=== PATIENT | female | born 1950 | race Caucasian/White ===

== ENCOUNTER 2018-06-12 09:35 | Emergency (ER) | payer MEDICARE, MEDICAID ==
[~2018-06-12] VITALS: Ht 154.9 cm; Wt 66.2 kg
[~2018-06-12 09:35] MED LIST: ASPI-605 PO; BENA20TA78 PO; GLIP5TAB13 PO; METF1000 PO; NPH,100V; OMEP20CA4 PO; SIMV10TA2 PO; SIMV10TA6; TRAM50TA2 PO
[2018-06-12 09:43] VITALS: BP 142/84
== END 2018-06-12 11:14 | disposition home or self-care (01) ==
LOC: ER 09:36
DX: J06.9 Acute upper respiratory infection, unspecified (principal); E11.9 Type 2 diabetes mellitus without complications; I10 Essential (primary) hypertension; M54.9 Dorsalgia, unspecified; G89.29 Other chronic pain; Z90.710 Acquired absence of both cervix and uterus; Z79.84 Long term (current) use of oral hypoglycemic drugs
CPT/HCPCS: 71046

== ENCOUNTER 2018-08-25 20:42 | Emergency (ER) | payer MEDICARE, MEDICAID ==
[~2018-08-25] VITALS: Ht 160 cm; Wt 63.5 kg
--- NOTE | 2018-08-25 22:12 | NUR ---
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 +NAUSEA, -VOMITTING
--- NOTE | 2018-08-25 22:27 | NUR ---
AT THE BED SIDE
[2018-08-25] MEDS ORDERED: LOPERAMIDE HCL (2 MG CAP) 2 MG CAPSULE PO ONE ×2 (23:00→23:05)
[2018-08-25] MEDS ORDERED: KETOROLAC TROMETHAMINE INJ 30 MG/ML VIAL IV ONE (23:00)
[2018-08-25] MEDS ORDERED: KETOROLAC TROMETHAMINE 15 MG/ML VIAL ONE (23:05)
[2018-08-25 23:12] LABS: APPEARANCE,URINE Clear (CLEAR); BILIRUBIN,URINE Negative (NEGATIVE); BLOOD, URINE Negative Ery/uL (NEGATIVE); COLOR,URINE Yellow (YELLOW); KETONES,URINE Negative (NEGATIVE); LEUKOCYTE ESTERASE ,URINE Negative (NEGATIVE); NITRITE, URINE Negative (NEGATIVE); PROTEIN,URINE Negative (NEGATIVE); UGLUCOSE Negative (NEGATIVE); UROBILINOGEN,URINE 0.2 EU/dL (0.2)
[2018-08-25 23:14] LABS: BASOPHILS # (AUTO) 0.1 /CMM (0.0-0.2); BASOPHILS % (AUTO) 0.5 % (0.0-2.0); EOSINOPHILS % (AUTO) 0.5 % (0.0-6.0); HEMATOCRIT 36 % (33-45); LYMPHOCYTES # (AUTO) 1.6 /CMM (0.8-4.8); LYMPHOCYTES % (AUTO) 15.2 % (20.0-44.0); MEAN CORPUSCULAR HGB CONC 33 g/dl (31.0-36.0); MEAN CORPUSCULAR VOLUME 84 fL (82-100); MONOCYTES # (AUTO) 0.7 /CMM (0.1-1.30); MONOCYTES % (AUTO) 6.9 % (2.0-12.0); NEUTROPHILS % (AUTO) 76.9 % (43.0-81.0); PLATELET COUNT (AUTO) 232 /CMM (150-450); RED BLOOD CELL COUNT(AUTO) 4.32 MIL/uL (4.0-5.2); WHITE BLOOD COUNT (AUTO) 10.5 K/uL (4.3-11.0)
[2018-08-25 23:20] LABS: CREATININE 0.7 mg/dL (0.6-1.3); POTASSIUM 4.1 mmol/L (3.5-5.1)
[2018-08-25 23:28] LABS: ALBUMIN 3.7 g/dL (3.4-5.0); BILIRUBIN,DIRECT 0.1 mg/dL (0.0-0.2); BILIRUBIN,TOTAL 0.5 mg/dL (0.2-1.0); CALCIUM, SERUM 9.1 mg/dL (8.5-10.1); TOTAL PROTEIN, SERUM 7.3 g/dL (6.4-8.2)
--- NOTE | 2018-08-26 00:30 | NUR ---
Patient discharged to home in stable condition. Rx and Written and verbal after care instructions given. Patient verbalizes understanding of instruction.
[2018-08-26 00:31] VITALS: BP 128/76
== END 2018-08-26 00:31 | disposition home or self-care (01) ==
LOC: ER 20:50
DX: R10.30 Lower abdominal pain, unspecified (principal); R19.7 Diarrhea, unspecified; G89.29 Other chronic pain; M54.5 Low back pain; E11.9 Type 2 diabetes mellitus without complications; I10 Essential (primary) hypertension; Z90.710 Acquired absence of both cervix and uterus; Z79.82 Long term (current) use of aspirin
CPT/HCPCS: 36415; 80048; 80076; 81001; 85025; 96374; 99283; J1885; 81000-TC

== ENCOUNTER 2018-09-30 04:15 | Emergency (ER) | payer MEDICARE, MEDICAID ==
[~2018-09-30] VITALS: Ht 162.6 cm; Wt 70.3 kg
--- NOTE | 2018-09-30 04:25 | NUR ---
BIBFAMILY FROM HOME. TO ER BED 4. AAOX4, NO RESP DISTRESS NOTED AT TIME OF ASSESSMENT. 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 PT REPORT NAUSEA, NO VOMITING AND NO DIARRHEA. O2 SAT 100% ON RA. AT BEDSIDE FOR EVAL. IV LINE OBTAINED ON L AC 20G. BLOOD DRAWN AND SENT TO LAB.
[2018-09-30 04:43] LABS: BASOPHILS # (AUTO) 0.1 /CMM (0.0-0.2); BASOPHILS % (AUTO) 0.8 % (0.0-2.0); EOSINOPHILS % (AUTO) 1.5 % (0.0-6.0); HEMATOCRIT 36 % (33-45); HEMOGLOBIN 11.9 g/dL (11.5-14.8); LYMPHOCYTES # (AUTO) 2.8 /CMM (0.8-4.8); LYMPHOCYTES % (AUTO) 40.1 % (20.0-44.0); MEAN CORPUSCULAR HGB CONC 34 g/dl (31.0-36.0); MEAN CORPUSCULAR VOLUME 84 fL (82-100); MONOCYTES # (AUTO) 0.8 /CMM (0.1-1.30); MONOCYTES % (AUTO) 11.1 % (2.0-12.0); NEUTROPHILS # (AUTO) 3.2 /CMM (1.8-8.9); NEUTROPHILS % (AUTO) 46.5 % (43.0-81.0); PLATELET COUNT (AUTO) 238 /CMM (150-450); RED BLOOD CELL COUNT(AUTO) 4.23 MIL/uL (4.0-5.2); WHITE BLOOD COUNT (AUTO) 6.9 K/uL (4.3-11.0)
[2018-09-30 04:54] LABS: CARBON DIOXIDE 25 mmol/L (21-32); CHLORIDE 101 mmol/L (98-107); CREATININE 0.8 mg/dL (0.6-1.3); GLUCOSE 195 mg/dL (74-106); POTASSIUM 3.9 mmol/L (3.5-5.1); SODIUM SERUM 137 mmol/L (136-145); UREA NITROGEN, BLOOD 11 mg/dL (7-18)
[2018-09-30 05:06] LABS: ALANINE AMINOTRANSFERASE 63 U/L (12-78); ALBUMIN 3.7 g/dL (3.4-5.0); ALKALINE PHOSPHATASE 85 U/L (46-116); ASPARTATE AMINOTRANSFERASE 28 U/L (15-37); B-TYPE NATRIURETIC PEPTIDE 25 PG/ML (0-125); BILIRUBIN,DIRECT 0.1 mg/dL (0.0-0.2); BILIRUBIN,TOTAL 0.3 mg/dL (0.2-1.0); TOTAL PROTEIN, SERUM 7.5 g/dL (6.4-8.2)
[2018-09-30] MEDS ORDERED: MECLIZINE HCL 25 MG TABLET ONE (05:54)
[2018-09-30] MEDS ORDERED: CEPHALEXIN MONOHYDRATE 500 MG CAPSULE PO ONE ×2 (05:54→06:00)
[2018-09-30] MEDS ORDERED: MECLIZINE HCL 25 MG TABLET PO ONE (06:00)
--- NOTE | 2018-09-30 06:17 | NUR ---
IV removed. Catheter intact and site benign. Pressure and 4x4 applied to site. No bleeding noted. Patient discharged to home in stable condition. Written and verbal after care instructions given. Patient verbalizes understanding of instruction. Pt ambulatory with a steady gait
[2018-09-30 06:19] VITALS: BP 57/132
== END 2018-09-30 06:20 | disposition home or self-care (01) ==
LOC: ER 04:19
DX: R42 Dizziness and giddiness (principal); L03.114 Cellulitis of left upper limb; I10 Essential (primary) hypertension; E11.9 Type 2 diabetes mellitus without complications; G89.29 Other chronic pain; E78.5 Hyperlipidemia, unspecified; Z90.710 Acquired absence of both cervix and uterus; Z79.899 Other long term (current) drug therapy; Z79.4 Long term (current) use of insulin; Z79.84 Long term (current) use of oral hypoglycemic drugs; Z79.82 Long term (current) use of aspirin
CPT/HCPCS: 36415; 71045; 80048; 80076; 83880; 84484; 85025; 85378; 85730; 93005; 99284; J8597

== ENCOUNTER 2019-04-16 17:12 | Emergency (ER) | payer MEDICARE, MEDICAID ==
[~2019-04-16] VITALS: Ht 160 cm; Wt 63.0 kg
[~2019-04-16 17:12] MED LIST changes: -SIMV10TA6; +SIMV10TA98
[2019-04-16] MEDS ORDERED: KETOROLAC TROMETHAMINE INJ 30 MG/ML VIAL IM ONE (18:00)
[2019-04-16] MEDS ORDERED: ALBUTEROL FS 2.5 MG/0.5 ML VIAL.NEB NEB ONE (18:00)
--- NOTE | 2019-04-16 18:31 | NUR ---
PT RREC'D TO ER C/O BACK PAIN TODAY 09/25 TORADOL 15 MG IM RT BUTTUCKS TOLERATED WELL FAMILY AT BEDSIDE
[2019-04-16 18:40] LABS: BASOPHILS # (AUTO) 0.1 /CMM (0.0-0.2); BASOPHILS % (AUTO) 0.5 % (0.0-2.0); EOSINOPHILS % (AUTO) 0.7 % (0.0-6.0); HEMATOCRIT 38 % (33-45); HEMOGLOBIN 12.5 g/dL (11.5-14.8); LYMPHOCYTES # (AUTO) 2.4 /CMM (0.8-4.8); LYMPHOCYTES % (AUTO) 22.3 % (20.0-44.0); MEAN CORPUSCULAR HGB CONC 33 g/dl (31.0-36.0); MEAN CORPUSCULAR VOLUME 84 fL (82-100); MONOCYTES # (AUTO) 0.7 /CMM (0.1-1.30); MONOCYTES % (AUTO) 6.5 % (2.0-12.0); NEUTROPHILS # (AUTO) 7.5 /CMM (1.8-8.9); PLATELET COUNT (AUTO) 242 /CMM (150-450); RED BLOOD CELL COUNT(AUTO) 4.56 MIL/uL (4.0-5.2); WHITE BLOOD COUNT (AUTO) 10.7 K/uL (4.3-11.0)
[2019-04-16 18:48] LABS: CALCIUM, SERUM 9.4 mg/dL (8.5-10.1); CREATININE 0.6 mg/dL (0.6-1.3); POTASSIUM 4.5 mmol/L (3.5-5.1)
[2019-04-16 18:52] LABS: ALBUMIN 4.2 g/dL (3.4-5.0); BILIRUBIN,DIRECT 0.1 mg/dL (0.0-0.2); BILIRUBIN,TOTAL 0.3 mg/dL (0.2-1.0); TOTAL PROTEIN, SERUM 7.8 g/dL (6.4-8.2)
--- NOTE | 2019-04-16 19:07 | NUR ---
REPORT RECEIVED FROM KRISTINE GAY FOR CLEVE.
--- NOTE | 2019-04-16 19:08 | NUR ---
PT IS AAOX4. NO SOB. BREATHING EVENLY AND UNLABORED. PT'S FAMILY MEMBER AT BEDSIDE. VSS. WILL CONTINUE TO MONITOR PATIENT.
[2019-04-16 19:09] LABS: APPEARANCE,URINE Clear (CLEAR); BILIRUBIN,URINE Negative (NEGATIVE); BLOOD, URINE Negative Ery/uL (NEGATIVE); COLOR,URINE Yellow (YELLOW); KETONES,URINE Negative (NEGATIVE); LEUKOCYTE ESTERASE ,URINE Trace (NEGATIVE); NITRITE, URINE Negative (NEGATIVE); PH,URINE 7.5 (5.0-8.0); PROTEIN,URINE Negative (NEGATIVE); UGLUCOSE Negative (NEGATIVE); UROBILINOGEN,URINE 0.2 EU/dL (0.2)
[2019-04-16 19:19] LABS: BACTERIA,URINE None seen /HPF (None Seen); RBC,URINE 0-2 /HPF (0-2); SQUAMOUS EPITHELIAL CELL,UR Few /HPF (None Seen); WBC,URINE 0-2 /HPF (0-3)
--- NOTE | 2019-04-16 20:03 | NUR ---
Patient discharged to home in stable condition. Written and verbal after care instructions given. Patient verbalizes understanding of instruction.
[2019-04-16 20:04] VITALS: BP 129/73
== END 2019-04-16 20:04 | disposition home or self-care (01) ==
LOC: ER 17:14
DX: K57.32 Diverticulitis of large intestine without perforation or abscess without bleeding (principal); I10 Essential (primary) hypertension; E11.9 Type 2 diabetes mellitus without complications; M54.5 Low back pain; G89.29 Other chronic pain; Z90.710 Acquired absence of both cervix and uterus; Z79.899 Other long term (current) drug therapy; Z79.82 Long term (current) use of aspirin
CPT/HCPCS: 36415; 80048-TC; 80076-TC; 81000-TC; 83690-TC; 85025-TC; 87086-TC

== ENCOUNTER 2019-09-06 16:59 | Emergency (ER) | payer MEDICARE, OTHER ==
[~2019-09-06] VITALS: Ht 152.4 cm; Wt 66.7 kg
[2019-09-06 17:06] VITALS: BP 141/89
[2019-09-06] MEDS ORDERED: TDAP [DIPH/PERTUSSIS/TET] 0.5 ML VIAL IM ONE ×2 (17:22→17:30)
[2019-09-06] MEDS ORDERED: ACETAMINOPHEN ES 500 MG TABLET ONE (17:22)
[2019-09-06] MEDS ORDERED: ACETAMINOPHEN 325 MG TABLET PO ONE (17:30)
[2019-09-06] MEDS ORDERED: GELATIN SPONGE,ABSORBABLE 1 SPONGE SPONGE TP ONE (17:50)
--- NOTE | 2019-09-06 18:02 | NUR ---
Non-adaptic and dressing applied by BRIDGETTE Gomez on R thumb. Patient discharged to home in stable condition. Written and verbal after care instructions given. Patient verbalizes understanding of instruction. NO active bleeding noted
== END 2019-09-06 18:03 | disposition home or self-care (01) ==
LOC: ER 17:09
DX: S61.001A Unspecified open wound of right thumb without damage to nail, initial encounter (principal); I10 Essential (primary) hypertension; E11.9 Type 2 diabetes mellitus without complications; M54.9 Dorsalgia, unspecified; G89.29 Other chronic pain; Z79.82 Long term (current) use of aspirin; Z90.710 Acquired absence of both cervix and uterus; Z79.899 Other long term (current) drug therapy; W26.8XXA Contact with other sharp object(s), not elsewhere classified, initial encounter; Y93.89 Activity, other specified; Y92.89 Other specified places as the place of occurrence of the external cause; Y99.8 Other external cause status
CPT/HCPCS: 90471; 90715; 99283; A6403

== ENCOUNTER 2021-07-22 13:16 | Emergency (ER) | payer MEDICARE, OTHER ==
[~2021-07-22] VITALS: Ht 152.4 cm; Wt 62.1 kg
--- NOTE | 2021-07-22 13:44 | NUR ---
RAD AT BEDSIDE
[2021-07-22] MEDS ORDERED: IBUP-1955 PO (14:25)
[2021-07-22] MEDS ORDERED: IBUPROFEN 600 MG TABLET PO ONE (14:30)
[2021-07-22 14:33] VITALS: BP 129/82
== END 2021-07-22 14:41 | disposition home or self-care (01) ==
LOC: ER 13:20
DX: S83.92XA Sprain of unspecified site of left knee, initial encounter (principal); I10 Essential (primary) hypertension; G89.29 Other chronic pain; E11.9 Type 2 diabetes mellitus without complications; Z90.710 Acquired absence of both cervix and uterus; Z79.899 Other long term (current) drug therapy; X58.XXXA Exposure to other specified factors, initial encounter; Y93.89 Activity, other specified; Y92.89 Other specified places as the place of occurrence of the external cause; Y99.8 Other external cause status
CPT/HCPCS: 73564-TC

== ENCOUNTER 2021-08-06 10:35 | Inpatient (IN) | payer MEDICARE, OTHER ==
[~2021-08-06] VITALS: Ht 154.9 cm; Wt 61.7 kg
[~2021-08-06 10:35] MED LIST changes: +IBUP-1955 PO
--- NOTE | 2021-08-06 11:00 | NUR ---
BIBS C/O CP since thursday, sent by PCP for further evaluation abnormal EKG in the PCP's office. AMBULATORY, PLACED ON BED, AAOX4, ATTACHED TO MONITOR- SINUS RHYTHYM, SATURATING AT 99% WITH 2LIT. O2, IN PAIN 09/25
--- NOTE | 2021-08-06 11:00 | NUR ---
RECIVED PT 70 YRS FEMALE C/O CHEST PAIN CAME AND SARTHAK no sob
[2021-08-06 11:05] LABS: BASOPHILS # (AUTO) 0.1 K/uL (0.0-0.2); BASOPHILS % (AUTO) 1.3 % (0.0-2.0); EOSINOPHILS % (AUTO) 3.1 % (0.0-6.0); HEMATOCRIT 37 % (33-45); HEMOGLOBIN 12.2 g/dL (11.5-14.8); LYMPHOCYTES # (AUTO) 1.9 K/uL (0.8-4.8); MEAN CORPUSCULAR HGB CONC 33 g/dl (31.0-36.0); MEAN CORPUSCULAR VOLUME 83 fL (82-100); MONOCYTES # (AUTO) 0.5 K/uL (0.1-1.30); NEUTROPHILS # (AUTO) 3.3 K/uL (1.8-8.9); NEUTROPHILS % (AUTO) 55.6 % (43.0-81.0); PLATELET COUNT (AUTO) 233 K/uL (150-450); RED BLOOD CELL COUNT(AUTO) 4.44 MIL/uL (4.0-5.2); WHITE BLOOD COUNT (AUTO) 5.9 K/uL (4.3-11.0)
[2021-08-06 11:15] LABS: CALCIUM, SERUM 9.1 mg/dL (8.5-10.1); CARBON DIOXIDE 25 mmol/L (21-32); CHLORIDE 100 mmol/L (98-107); CREATININE 0.8 mg/dL (0.6-1.3); GLUCOSE 235 mg/dL (74-106); POTASSIUM 4.2 mmol/L (3.5-5.1); SODIUM SERUM 134 mmol/L (136-145); UREA NITROGEN, BLOOD 14 mg/dL (7-18)
[2021-08-06 11:28] LABS: ALANINE AMINOTRANSFERASE 38 U/L (12-78); ALBUMIN 4.1 g/dL (3.4-5.0); ALKALINE PHOSPHATASE 80 U/L (46-116); ASPARTATE AMINOTRANSFERASE 21 U/L (15-37); BILIRUBIN,DIRECT 0.1 mg/dL (0.0-0.2); BILIRUBIN,TOTAL 0.4 mg/dL (0.2-1.0)
[2021-08-06] MEDS ORDERED: INSU100V7 SQ (11:28)
[2021-08-06] MEDS ORDERED: SITA100T PO (11:28)
--- NOTE | 2021-08-06 11:30 | NUR ---
SWAB FOR COVID19 SENT TO LAB
--- NOTE | 2021-08-06 11:50 | NUR ---
[facility]
--- NOTE | 2021-08-06 12:57 | NUR ---
NO CHEST PAIN AT THIS TIME NO SOB
--- NOTE | 2021-08-06 14:30 | NUR ---
RESTING AT THIS TIME NO PAIN
--- NOTE | 2021-08-06 15:31 | NUR ---
ROOM 320-2
--- NOTE | 2021-08-06 15:45 | NUR ---
TO ROOM 320-2 VIA ROSY STABLE VIA ROSY HAND OFF CASSIDY REYNOLDS VS STABLE DINESS CHEST PAIN
--- NOTE | 2021-08-06 15:50 | NUR ---
RECEIVED PATIENT ON UNIT @ 1550 VIA [employer]. ABLE TO AMBULATE TO BED W/ MINIMAL ASSIST. PATIENT DENIES PAIN AT THIS TIME. NO S/SX OF DISTRESS OR SOB OBSERVED OR REPORTED. CALL LIGHT WITHIN REACH. BED IN LOWEST POSITION AND LOCKED WITH SIDERAIL UP X2. WILL CONTINUE TO MONITOR.
[2021-08-06] MEDS ORDERED: Z GUARD REMEDY 4 OZ OINT TP PRN (16:00)
[2021-08-06] MEDS ORDERED: ZOLPIDEM TARTRATE 5 MG TABLET PO PRN (16:00)
[2021-08-06] MEDS ORDERED: ONDANSETRON HCL/PF 4 MG/2 ML VIAL IVP PRN (16:00)
[2021-08-06] MEDS ORDERED: ACETAMINOPHEN 325 MG TABLET PO PRN (16:00)
[2021-08-06] MEDS ORDERED: MAG HYDROX/AL HYDROX/SIMETH 30 ML UDC PO PRN (16:00)
[2021-08-06] MEDS ORDERED: MAGNESIUM HYDROXIDE 30 ML UDC PO PRN (16:00)
[2021-08-06 16:19] VITALS: BP 125/66
[2021-08-06] MEDS ORDERED: Medication Not On Formulary EA (Metformin Hcl (Glucophage) 1,000 MG) PO SCH (17:00)
[2021-08-06] MEDS: METFORMIN 500 MG TABLET PO SCH (18:15)
[2021-08-06] MEDS: ATORVASTATIN 40 MG TABLET PO SCH (18:15)
[2021-08-06] MEDS: ENOXAPARIN SODIUM 40 MG/0.4 ML DISP.SYRIN SQ SCH (18:16)
[2021-08-06 18:17] LABS: THYROID STIMULATING HORMONE 2.469 uIU/mL (0.358-3.74)
--- NOTE | 2021-08-06 19:00 | NUR ---
INTERNATIONAL RELATIONS TEACHER NOTES PT IN BED, RESTING, NO COMPLAINT AT THIS TIME, RESPIRATIONS NORMAL, CALL LIGHT WITHIN REACH, SEEN AND EXAMINED BY DR. TOM, PT FOR [facility] TOMORROW, PT INFORMED, CONSENT SIGNED.
--- NOTE | 2021-08-06 19:00 | NUR ---
RN opening notes Received Pt from morning nurse. Pt is sitting in bed comfortably watching TV. Pt is alert and orienetdX4. On room air. No S/S of distress noted. Tele monitor showed SR hr at 70. IV site at LAC# 20 is clean, intact and SL. Pt is able to ambulates with a steady gait. Safety precautions is maintained. Bed at low position, brakes locked, side rails upX2, hob elevated and call light is within reach. Will continue to monitor.
[2021-08-06 20:00] VITALS: BP_SYST 130; BP_SYST 139; BP_DIAS 70
[2021-08-06] MEDS: CARVEDILOL 6.25 MG TABLET PO SCH (21:21)
[2021-08-07] VITALS (9 sets, daily range): BP systolic 110–125; BP diastolic 52–69
[2021-08-07 06:39] LABS: BASOPHILS # (AUTO) 0.1 K/uL (0.0-0.2); HEMATOCRIT 36 % (33-45); HEMOGLOBIN 12.1 g/dL (11.5-14.8); LYMPHOCYTES # (AUTO) 2.5 K/uL (0.8-4.8); LYMPHOCYTES % (AUTO) 35.6 % (20.0-44.0); MEAN CORPUSCULAR HGB CONC 34 g/dl (31.0-36.0); MEAN CORPUSCULAR VOLUME 83 fL (82-100); MONOCYTES # (AUTO) 0.5 K/uL (0.1-1.30); MONOCYTES % (AUTO) 7.1 % (2.0-12.0); NEUTROPHILS # (AUTO) 3.7 K/uL (1.8-8.9); NEUTROPHILS % (AUTO) 53.3 % (43.0-81.0); PLATELET COUNT (AUTO) 229 K/uL (150-450); RED BLOOD CELL COUNT(AUTO) 4.37 MIL/uL (4.0-5.2); WHITE BLOOD COUNT (AUTO) 6.9 K/uL (4.3-11.0)
--- NOTE | 2021-08-07 06:40 | NUR ---
RN closing notes Pt is resting in bed comfortably. Pt is alert and orientedX4. On room air. No S/S of distress noted. VS is stable. Tele monitor showed SR hr at 68. IV site at LAC# 20 is clean, intact and SL. Routine meds were given as ordered. Kept Pt clean, dry and comfortable. Safety precautions is maintained. Bed at low position, brakes locked, side rails upX2, hob elevated and call light is within reach. Will endorse to am nurse for CLEVE.
--- NOTE | 2021-08-07 06:40 | NUR ---
RN notes Pt is complaining of having loose stool four times and requesting meds. Informed and notified Dr. Zeng. ordered lactinex 2 tabs/po/bid. Order carried out.
[2021-08-07] MEDS: ACIDOPHILUS/BULGARICUS 1 EACH TAB.CHEW PO SCH ×3 (06:50→16:59)
--- NOTE | 2021-08-07 06:52 | NUR ---
RN notes Pt is having loose stool and requesting meds. administered lactinex 2tabs/po as ordered per Pt request. Will continue to monitor.
[2021-08-07 07:03] LABS: CALCIUM, SERUM 9.2 mg/dL (8.5-10.1); CREATININE 0.8 mg/dL (0.6-1.3); MAGNESIUM 1.5 mg/dL (1.8-2.4); PHOSPHORUS 4.2 mg/dL (2.5-4.9); POTASSIUM 4.3 mmol/L (3.5-5.1)
[2021-08-07 07:21] LABS: THYROID STIMULATING HORMONE 2.675 uIU/mL (0.358-3.74)
[2021-08-07] MEDS: PANTOPRAZOLE 40 MG TABLET.DR PO SCH (07:30)
[2021-08-07] MEDS ORDERED: OMEPRAZOLE 20 MG CAPSULE.DR PO SCH (07:30)
--- NOTE | 2021-08-07 07:35 | NUR ---
INTERNAL COMMUNICATIONS MANAGER OPENING NOTES: RECEIVED PATIENT IN BED AWAKE, ALERT AND ORIENTED X 4 AND ABLE TO VERBALIZED NEEDS. NO SOB OR CARDIAC DISTRESS NOTE, AFEBRILE. ON NPO. ON O2 INHALATION @2LPM VIA NC FOR COMFORT. 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 KEPT RESTED AND COMFORTABLE. SAFETY PRECAUTIONARY MEASURES MAINTAINED: BED IN LOWEST AND LOCKED POSITION, SIDE RAILS UP X 2. CALL LIGHT IN EASY REACH FOR HELP/ASSISTANCE.
[2021-08-07] MEDS: METFORMIN 500 MG TABLET PO SCH (08:00)
[2021-08-07] MEDS: ATORVASTATIN 40 MG TABLET PO SCH (09:00)
[2021-08-07] MEDS: BENAZEPRIL HCL 20 MG TABLET PO SCH (09:00)
[2021-08-07] MEDS: CARVEDILOL 6.25 MG TABLET PO SCH ×2 (09:00→21:06)
[2021-08-07] MEDS ORDERED: ASPIRIN 81 MG TAB.CHEW PO SCH (09:00)
[2021-08-07] MEDS: ASPIRIN EC 81 MG TABLET.DR PO SCH (09:00)
[2021-08-07] MEDS: LINAGLIPTIN 5 MG TABLET PO SCH (09:00)
[2021-08-07] MEDS: Magnesium 1GM/D5W 100ML PREMIX 100 ML IV SCH ×2 (11:00→11:58)
[2021-08-07] MEDS ORDERED: IOHEXOL-350 100 ML VIAL IV ONE (13:21)
[2021-08-07] MEDS ORDERED: CT SWABBABLE VALVE TRANS SET 1 EA INFUS.SET MC ONE (13:21)
--- NOTE | 2021-08-07 13:36 | NUR ---
RN NOTES: PATIENT PICKED UP TRANSPORTER VIA BED AND WENT TO CT ANGIOGRAM.
[2021-08-07] MEDS ORDERED: METOPROLOL TARTRATE INJ 5 MG/5 ML AMPUL ONE (13:50)
--- NOTE | 2021-08-07 14:04 | NUR ---
rn notes CTA done at this time patient stable medication was administered Metoprolol 5mg/ml iv push on LAC area intact, and nitro on SL sprayx1, BP- 117/68, p-62. patient stable procedure done patient tolerated well. patient stable, sand back to the room. RN notified follow up.
--- NOTE | 2021-08-07 14:28 | NUR ---
RN NOTES: RECEIVED PATIENT FROM CTA, PATIENT WAS TRANSPORTED VIA WHEELCHAIR ACCOMPANIED BY ERLIN CASTRO. MD TOWNSEND TO RESUME DIET AND HOLD METFORMIN FOR 2 DAYS. PATIENT STABLE, VS 110/62, HR 62, O2 SAT 97% RM. WILL MONITOR AND WILL REPORT FOR ANY SIGNIFICANT CHANGES.
[2021-08-07] MEDS: ENOXAPARIN SODIUM 40 MG/0.4 ML DISP.SYRIN SQ SCH (16:03)
--- NOTE | 2021-08-07 18:51 | NUR ---
MS RN CLOSING NOTES : PATIENT IN BED AWAKE RESTING IN BED, ALERT AND ORIENTED X 4 AND ABLE TO VERBALIZED NEEDS. NO SOB OR CARDIAC DISTRESS NOTE, AFEBRILE. ON O2 INHALATION @2LPM VIA NC FOR COMFORT. 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 KEPT RESTED AND COMFORTABLE. SAFETY PRECAUTIONARY MEASURES MAINTAINED: BED IN LOWEST AND LOCKED POSITION, SIDE RAILS UP X 2. CALL LIGHT IN EASY REACH FOR HELP/ASSISTANCE. WILL ENDORSED TO NEXT SHIFT FOR CONTINUITY OF CARE.
--- NOTE | 2021-08-07 19:15 | NUR ---
RN opening notes Pt is resting in bed comfortably. Pt is alert and orientedX4. On room air. No S/S of distress noted. IV site at LAC# 20 is clean, intact and SL. Pt is able to ambulates with a steady gait. Safety precautions is maintained. Bed at low position, brakes locked, side rails upX2, hob elevated and call light is within reach. Will continue to monitor.
--- NOTE | 2021-08-07 19:40 | NUR ---
RN NOTES: RECEIVED ORDER FROM DR CHAVEZ FOR MODERATE SLIDING SCALE, NIGHT NURSE INFORMED.
--- NOTE | 2021-08-07 19:50 | NUR ---
RN notes Pt is complaining of mild pain on L knee and requesting tylenol. administered tylenol 650 mg/po/prn as ordered per pt' request. will continue to monitor.
[2021-08-07] MEDS ORDERED: DEXTROSE 50%-WATER 50 ML DISP.SYRIN IV PRN (20:00)
[2021-08-07] MEDS ORDERED: *INSULIN REGULAR(HUMULIN R)HUM 100 UNIT/ML VIAL SQ PRN (20:00)
[2021-08-07] MEDS: BLOOD SUGAR DIAGNOSTIC 1 EACH STRIP VI SCH (21:46)
--- NOTE | 2021-08-07 23:44 | NUR ---
RN notes Informed and notified Dr. Zeng regarding the result of CT angiogram with calcium score. MD ordered to follow up with cardiology in am. Order carried out. Charge nurse is aware and informed.
[2021-08-08] MEDS: BLOOD SUGAR DIAGNOSTIC 1 EACH STRIP VI SCH ×2 (06:33→12:15)
[2021-08-08] MEDS: INSULIN REGULAR, HUMAN 100 UNIT/ML 3 ML VIAL SQ PRN ×2 (06:34→12:14)
[2021-08-08 06:40] LABS: CALCIUM, SERUM 9.2 mg/dL (8.5-10.1); CREATININE 0.8 mg/dL (0.6-1.3); MAGNESIUM 1.8 mg/dL (1.8-2.4); PHOSPHORUS 3.8 mg/dL (2.5-4.9); POTASSIUM 4.9 mmol/L (3.5-5.1)
--- NOTE | 2021-08-08 06:45 | NUR ---
RN closing notes Pt is resting in bed comfortably. Pt is alert and orientedX4. On room air. No S/S of distress noted. IV site at LAC# 20 is clean, intact and SL. VS is stable. Routine meds were given as ordered. Kept Pt clean, dry and comfortable. All needs met and attended. Safety precautions is maintained. Bed at low position, brakes locked, side rails upX2, hob elevated and call light is within reach. Will continue to monitor.
[2021-08-08 06:50] LABS: BASOPHILS # (AUTO) 0.1 K/uL (0.0-0.2); BASOPHILS % (AUTO) 0.9 % (0.0-2.0); EOSINOPHILS % (AUTO) 3.4 % (0.0-6.0); HEMATOCRIT 38 % (33-45); HEMOGLOBIN 12.4 g/dL (11.5-14.8); LYMPHOCYTES # (AUTO) 2.5 K/uL (0.8-4.8); MEAN CORPUSCULAR HGB CONC 33 g/dl (31.0-36.0); MEAN CORPUSCULAR VOLUME 84 fL (82-100); MONOCYTES # (AUTO) 0.5 K/uL (0.1-1.30); MONOCYTES % (AUTO) 7.9 % (2.0-12.0); NEUTROPHILS # (AUTO) 2.9 K/uL (1.8-8.9); NEUTROPHILS % (AUTO) 46.8 % (43.0-81.0); PLATELET COUNT (AUTO) 235 K/uL (150-450); RED BLOOD CELL COUNT(AUTO) 4.51 MIL/uL (4.0-5.2); WHITE BLOOD COUNT (AUTO) 6.1 K/uL (4.3-11.0)
--- NOTE | 2021-08-08 07:30 | NUR ---
MS RN OPENING NOTES: RECEIVED PATIENT IN BED AWAKE, ALERT AND ORIENTED X 4 AND ABLE TO MAKE NEEDS KNOWN. NO SOB OR CARDIAC DISTRESS NOTE, AFEBRILE. ON ROOM AIR AND TOLERATING WELL. IV ACCESS ON LAC G#20 PATENT, INTACT AND FLUSHING WELL ANS SL. SAFETY PRECAUTIONARY MEASURES MAINTAINED: BED IN LOWEST AND LOCKED POSITION, SIDE RAILS UP X 2. CALL LIGHT IN EASY REACH FOR HELP/ASSISTANCE. WILL MONITOR ACCORDINGLY. KEPR RESTED AND COMFORTABLE.
[2021-08-08] MEDS: PANTOPRAZOLE 40 MG TABLET.DR PO SCH (07:34)
[2021-08-08 08:21] VITALS: BP 121/64
[2021-08-08] MEDS: ASPIRIN EC 81 MG TABLET.DR PO SCH (09:15)
[2021-08-08] MEDS: ACIDOPHILUS/BULGARICUS 1 EACH TAB.CHEW PO SCH (09:15)
[2021-08-08] MEDS: ATORVASTATIN 40 MG TABLET PO SCH (09:16)
[2021-08-08] MEDS: BENAZEPRIL HCL 20 MG TABLET PO SCH (09:16)
[2021-08-08 09:20] VITALS: BP 121/64
[2021-08-08] MEDS: CARVEDILOL 6.25 MG TABLET PO SCH (09:20)
[2021-08-08] MEDS: LINAGLIPTIN 5 MG TABLET PO SCH (09:20)
[2021-08-08] MEDS ORDERED: CARV6.252 PO (12:23)
[2021-08-08] MEDS ORDERED: ATOR40TA PO (12:23)
--- NOTE | 2021-08-08 14:49 | NUR ---
CHROME TANNER NOTES: PATIENT DISCHARGED TO HOME. A/O X 4 AND ABLE TO VERBALIZED NEED. NO SOB OR CARDIAC DISTRESS NOTED. HOSPITAL DISCHARGE INSTRUCTION GIVEN TO PATIENT AND DACINDYTHER MAXIMINO AND VERBALIZED UNDERSTANDING. PATIENT'S VS WNL. PAPER WORKS GIVEN TO MS STANTON INSTRUCTED TO FOLLOW UP ON PATIENT'S PCP AFTER A WEEK, BELONGINGS GIVEN, SIGNED PAPERS. REMOVED IV LINE AND SECURED WITH TAPE. REMOVED IDENTIFICATION BAND. PATIENT WAS HELPED BY ELISHA JO ACCOMPANIED BY MARK ANTHONY. PATIENT LEFT THE UNIT STABLE.
== END 2021-08-08 15:54 | disposition home or self-care (01) | DRG 303 ==
LOC: ER 10:38 → TELE 15:33 → MED 08-07 10:09
PROVIDERS: ADMIT Student in an Organized Health Care Education/Training Program; ATTEND Student in an Organized Health Care Education/Training Program
DX: I25.10 Atherosclerotic heart disease of native coronary artery without angina pectoris (principal); E11.9 Type 2 diabetes mellitus without complications; I10 Essential (primary) hypertension; Z79.84 Long term (current) use of oral hypoglycemic drugs; Z79.4 Long term (current) use of insulin; Z79.82 Long term (current) use of aspirin; Z79.899 Other long term (current) drug therapy; Z86.711 Personal history of pulmonary embolism; Z83.3 Family history of diabetes mellitus; Z82.49 Family history of ischemic heart disease and other diseases of the circulatory system; Z90.710 Acquired absence of both cervix and uterus
CPT/HCPCS: 36415; 70450-TC; 71045-TC; 75574; 80048-TC; 80061-TC; 80076-TC; 82962-TC; 83735-TC; 83880; 84100-TC; 84439-TC; 84443-TC; 84484-TC; 85025-TC; 87081-TC; 93307-TC; 94799-TC; 97116-TC; C9803; G0378; J1650; J1815; J3475; J3490; J7060; Q9967

== ENCOUNTER 2023-06-06 20:05 | Emergency (ER) | payer MEDICARE, OTHER ==
[~2023-06-06] VITALS: Ht 154.9 cm; Wt 77.1 kg
[~2023-06-06 20:05] MED LIST changes: +ATOR40TA PO; +CARV6.252 PO; -GLIP5TAB13 PO; +INSU100V7 SQ; -NPH,100V; -SIMV10TA2 PO; -SIMV10TA98; +SITA100T PO; -TRAM50TA2 PO
[2023-06-06] MEDS ORDERED: ONDANSETRON HCL/PF 4 MG/2 ML VIAL ONE (20:32)
[2023-06-06] MEDS ORDERED: MORPHINE SULFATE INJ 4 MG/ML DISP.SYRIN ONE (20:32)
[2023-06-06] MEDS: ONDANSETRON HCL/PF 4 MG/2 ML VIAL IVP ONE (20:33)
[2023-06-06] MEDS: IV NS 0.9% 1,000 ML BAG IV ONE (20:33)
[2023-06-06] MEDS: MORPHINE SULFATE INJ 2 MG/ML DISP.SYRIN IV ONE (20:33)
[2023-06-06 20:48] LABS: BASOPHILS # (AUTO) 0.1 K/uL (0.0-0.2); BASOPHILS % (AUTO) 1.6 % (0.0-2.0); EOSINOPHILS # (AUTO) 0.1 K/uL (0.0-0.7); HEMATOCRIT 37 % (33-45); HEMOGLOBIN 12.3 g/dL (11.5-14.8); LYMPHOCYTES # (AUTO) 2.3 K/uL (0.8-4.8); LYMPHOCYTES % (AUTO) 28.8 % (20.0-44.0); MEAN CORPUSCULAR HEMOGLOBIN 28 PG (26.0-33.0); MEAN CORPUSCULAR HGB CONC 33 g/dl (31.0-36.0); MEAN CORPUSCULAR VOLUME 84 fL (82-100); MONOCYTES # (AUTO) 0.5 K/uL (0.1-1.30); MONOCYTES % (AUTO) 6.6 % (2.0-12.0); PLATELET COUNT (AUTO) 279 K/uL (150-450); RED BLOOD CELL COUNT(AUTO) 4.42 MIL/uL (4.0-5.2); RED CELL DISTRIBUTION WIDTH 13.1 % (11.5-15.0); WHITE BLOOD COUNT (AUTO) 8.1 K/uL (4.3-11.0)
[2023-06-06 21:01] LABS: CALCIUM, SERUM 8.5 mg/dL (8.5-10.1); CARBON DIOXIDE 30 mmol/L (21-32); CHLORIDE 97 mmol/L (98-107); GLUCOSE 227 mg/dL (74-106); POTASSIUM 3.4 mmol/L (3.5-5.1); SODIUM SERUM 132 mmol/L (136-145); UREA NITROGEN, BLOOD 16 mg/dL (7-18)
[2023-06-06 21:50] LABS: INR 1.01 (0.91-1.10); PARTIAL THROMBOPLASTIN TIME 23.9 SEC (24.3-34.3); PROTHROMBIN TIME 10.7 SECS (9.2-11.1)
[2023-06-06] MEDS ORDERED: IBUP-1953 PO (22:01)
[2023-06-06] MEDS ORDERED: METH-647 PO (22:01)
[2023-06-06] MEDS ORDERED: POLY119P3 PO (22:01)
[2023-06-06] MEDS ORDERED: ACETAMINOPHEN ES 500 MG TABLET ONE ×2 (22:05→23:37)
[2023-06-06] MEDS ORDERED: IBUPROFEN 600 MG TABLET ONE (22:06)
[2023-06-06] MEDS: ACETAMINOPHEN ES 500 MG TABLET PO ONE (22:09)
[2023-06-06] MEDS: IBUPROFEN 600 MG TABLET PO ONE (22:09)
[2023-06-06] MEDS: ACETAMINOPHEN 325 MG TABLET PO ONE (23:37)
[2023-06-06 23:51] VITALS: BP 131/75; TEMP 98.2; O2SAT 99
== END 2023-06-06 23:51 | disposition home or self-care (01) ==
LOC: ER 20:19
DX: E11.65 Type 2 diabetes mellitus with hyperglycemia (principal); K59.00 Constipation, unspecified; M54.50 Low back pain, unspecified; I10 Essential (primary) hypertension; E11.9 Type 2 diabetes mellitus without complications; Z79.4 Long term (current) use of insulin; Z79.84 Long term (current) use of oral hypoglycemic drugs; Z79.899 Other long term (current) drug therapy; W01.0XXA Fall on same level from slipping, tripping and stumbling without subsequent striking against object, initial encounter; Y93.89 Activity, other specified; Y92.009 Unspecified place in unspecified non-institutional (private) residence as the place of occurrence of the external cause; Y99.8 Other external cause status
CPT/HCPCS: 99285; 72131; 96374; 71045; 96361; 96375; 72170; 72192; 85025; 80048; 36415; 85730; J2270; J2405; J7030

== ENCOUNTER 2024-09-18 19:32 | Emergency (ER) | payer MEDICARE, OTHER ==
[~2024-09-18] VITALS: Ht 162.6 cm; Wt 62.6 kg
[~2024-09-18 19:32] MED LIST changes: +ALBU18HF2 INH; +GUAI5SYR GT; +IBUP-1953 PO; +METH-647 PO; +POLY119P3 PO
[2024-09-18 19:47] VITALS: TEMP 98.6
[2024-09-18 20:21] LABS: PLATELET COUNT (AUTO) 263 K/uL (150-450); RED BLOOD CELL COUNT(AUTO) 4.29 MIL/uL (4.0-5.2); RED CELL DISTRIBUTION WIDTH 14.2 % (11.5-15.0); WHITE BLOOD COUNT (AUTO) 6.6 K/uL (4.3-11.0)
[2024-09-18 20:31] LABS: CALCIUM, SERUM 9.3 mg/dL (8.5-10.1); CREATININE 0.7 mg/dL (0.6-1.3); SODIUM SERUM 135.0 mmol/L (136-145); UREA NITROGEN, BLOOD 21.0 mg/dL (7-18)
[2024-09-18 20:43] LABS: ASPARTATE AMINOTRANSFERASE 17.0 U/L (15-37); NT-PRO BNP 19.0 pg/mL (0-125); TOTAL PROTEIN, SERUM 7.3 g/dL (6.4-8.2)
[2024-09-18] MEDS ORDERED: FURO-144 PO (21:12)
[2024-09-18 21:19] VITALS: BP 128/70; O2SAT 98
== END 2024-09-18 21:19 | disposition home or self-care (01) ==
LOC: ER 19:35
DX: R60.0 Localized edema (principal); I10 Essential (primary) hypertension; E11.9 Type 2 diabetes mellitus without complications; E78.5 Hyperlipidemia, unspecified; R06.02 Shortness of breath; I87.2 Venous insufficiency (chronic) (peripheral); Z79.4 Long term (current) use of insulin; Z79.82 Long term (current) use of aspirin; Z79.84 Long term (current) use of oral hypoglycemic drugs; Z79.899 Other long term (current) drug therapy
CPT/HCPCS: 36415; 71045-TC; 80053-TC; 83880; 85025-TC